=== PATIENT | male | born 1995 | race Caucasian/White ===

== ENCOUNTER 2019-06-20 19:54 | Emergency (ER) | payer OTHER ==
[2019-06-20 20:00] VITALS: BP 150/93
[2019-06-20] MEDS ORDERED: Lidocaine 2% EPI 1:200000 MPF* 10 ML VIAL INJ ONE (20:11)
[2019-06-20] MEDS ORDERED: Lidocaine 2% w/ EPI 1:200,000* 20 ML SDV VIAL INJ ONE (21:00)
--- NOTE | 2019-06-20 21:52 | ED ---
Laceration/Wound HPI - HPI Summary HPI Summary: 23-year-old male presents with leg laceration today. He states he was messing around with a knife and then cutting himself. He denies any foreign body in the wound. Is not currently bleeding. Tetanus up-to-date. Has no medical conditions. No numbness or tingling. is able to ambulate. - History of Current Complaint Stated Complaint: LEFT LEG LACERATION PER PT Time Seen by Provider: 06/20/19 20:03 Pain Intensity: 0 - Allergy/Home Medications Allergies/Adverse Reactions: Allergies Allergy/AdvReac Type Severity Reaction Status Date / Time No Known Allergies Allergy Verified 06/20/19 20:41 Home Medications: Home Medications Atorvastatin* 40 mg PO DAILY 06/20/19 [History Confirmed 06/20/19] Bupropion HCl 300 mg PO DAILY 06/20/19 [History Confirmed 06/20/19] PMH/Surg Hx/FS Hx/Imm Hx Endocrine/Hematology History: Denies: Hx Anticoagulant Therapy Respiratory History: Denies: Hx Asthma Infectious Disease History: No Infectious Disease History: Denies: Traveled Outside the [place] in Last 30 Days - Family History Known Family History: Positive: Non-Contributory - Social History Alcohol Use: None Substance Use Type: Reports: Marijuana Substance Use Comment - Amount & Last Used: daily until 3 days ago Smoking Status (MU): Former Smoker Review of Systems Negative: Fever Negative: Chest Pain Negative: Shortness Of Breath Positive: Other - leg laceration All Other Systems Reviewed And Are Negative: Yes Physical Exam Triage Information Reviewed: Yes Vital Signs On Initial Exam: Initial Vitals Temp Pulse Resp BP Pulse Ox 99.2 F 84 16 150/93 98 06/20/19 19:55 06/20/19 19:55 06/20/19 19:55 06/20/19 19:55 06/20/19 19:55 Vital Signs Reviewed: Yes Appearance: Positive: Well-Appearing Skin: Positive: Warm, Dry, Other - 7cm by 1cm laceration to left leg, 6cm by 1/ 2cm that tapers to superficial laceration Head/Face: Positive: Normal Head/Face Inspection Eyes: Positive: Normal, Conjunctiva Clear ENT: Positive: Pharynx normal Respiratory/Lung Sounds: Positive: Clear to Auscultation, Breath Sounds Present Cardiovascular: Positive: Normal, RRR Musculoskeletal: Positive: Strength/ROM Intact - left leg, Other - good pulses Neurological: Positive: Normal Psychiatric: Positive: Normal Procedures - Laceration/Wound Repair 1 Location: Other - left leg Description: Linear Length, Depth and Shape: 7cm by 1cm Irrigated w/ Saline (ccs): 500 Closure: Single Layer Suture Type: Prolene Number of Sutures: 10 2 Location: Other - left leg Description: Linear Length, Depth and Shape: 6cm by 1/2cm that becomes superficial Irrigated w/ Saline (ccs): 200 Closure: Single Layer Suture Type: Prolene Number of Sutures: 2 Diagnostics - Vital Signs Vital Signs Temp Pulse Resp BP Pulse Ox 06/20/19 19:55 99.2 F 84 16 150/93 98 - Laboratory Lab Statement: Any lab studies that have been ordered have been reviewed, and results considered in the medical decision making process. Laceration Repair Course/Dx - Course Course Of Treatment: 23-year-old male presents with leg laceration today. He states he was messing around with a knife and then cutting himself. He denies any foreign body in the wound. Is not currently bleeding. Tetanus up-to-date. Has no medical conditions. No numbness or tingling. is able to ambulate. On exam has 7cm by 1cm laceration to left leg that cleaned and closed with 10 sutures. has adjacent 6cm by 1/2cm that tapers to superficial laceration that cleaned and closed with 2 sutures. Told to keep the area clean. Patient understands agrees with plan. - Differential Dx Differental Diagnoses: Abrasion, Avulsion, Laceration - Clinical Impression Provider Diagnoses: Laceration of left leg Discharge - Sign-Out/Discharge Documenting (check all that apply): Patient Departure Patient Received Moderate/Deep Sedation with Procedure: No - Discharge Plan Condition: Good Disposition: HOME Patient Education Materials: Care For Your Stitches (ED) Referrals: Alma Delia Merino DO [Primary Care Provider] - Additional Instructions: Take Tylenol or ibuprofen for pain every 6 hours as needed Keep area clean and dry for 24 hours Return to ED or primary in 8-10 days to have sutures removed Return to ED if develop signs of infection such as fever, spreading redness, or pus. - Billing Disposition and Condition Condition: GOOD Disposition: Home
== END 2019-06-20 22:13 | disposition home or self-care (01) ==
LOC: ED 19:54
DX: S81.812A Laceration without foreign body, left lower leg, initial encounter (principal); W26.0XXA Contact with knife, initial encounter; Y92.9 Unspecified place or not applicable; Z79.899 Other long term (current) drug therapy; Z87.891 Personal history of nicotine dependence
CPT/HCPCS: 12005; 99282